=== PATIENT | female | born 1965 | race Caucasian/White ===

== ENCOUNTER 2016-10-21 20:03 | Emergency (ER) | payer OTHER ==
[2016-10-21 20:31] VITALS: BMI 34.9
[2016-10-21 20:35] VITALS: BP 129/87; PULSE 77; RESP 18; TEMP 98.2; O2SAT 98
[2016-10-21] MEDS ORDERED: Amoxicillin-Clav 875-125 mg Tab PO STA (20:57)
--- NOTE | 2016-10-21 21:01 | ED PDOC ---
Arrival/HPI - General Chief Complaint: ENT Problem Time Seen by Provider: 10/21/16 20:39 Historian: Patient - History of Present Illness Narrative History of Present Illness (Text): 10/21/16 20:58 51 y/o female, post menopausal, pmh including htn/hyperlipidemia, c/o lt. sided jaw swelling tonight sandwich dinner tonight. Pt. has no ear or throat pain, no dizziness, no headache, no night sweat, no dizziness, no difficulty swallowing, no other medical or psychological complaints. Past Medical History - Provider Review Nursing Documentation Reviewed: Yes - Infectious Disease Hx of Infectious Diseases: None - Tetanus Immunization Tetanus Immunization: >10 years Ago - Cardiac Hx Hypertension: Yes - Endocrine/Metabolic Hx Diabetes Mellitus Type 2: Yes - Musculoskeletal/Rheumatological Hx Falls: No Hx Osteoporosis: Yes - Psychiatric Hx Depression: No Hx Emotional Abuse: No Hx Physical Abuse: No Hx Substance Use: No - Surgical History Other/Comment: 4 surgeries on right ankle, first 2 surgeries done in [place], family stated "they thought she had cancer of the bone"the next 2 surgeries were to remove bone from right hip to put in right ankle with 2. screws and to repair veins in right foot, pt presently has cast with satnam wrap to right lower leg - Anesthesia Hx Anesthesia: Yes Hx Anesthesia Reactions: No Hx Malignant Hyperthermia: No - Suicidal Assessment Feels Threatened In Home Enviroment: No Family/Social History - Physician Review Nursing Documentation Reviewed: Yes Family/Social History: Unknown Family HX Smoking Status: Never Smoked Hx Alcohol Use: No Hx Substance Use: No Hx Substance Use Treatment: No Allergies/Home Meds Allergies/Adverse Reactions: Allergies No Known Allergies Allergy (Verified 08/08/12 22:50) Home Medications: Home Meds Medication Instructions Recorded Confirmed Albiglutide [Tanzeum] 1 vial SQ Q7D 10/21/16 10/21/16 Ergocalciferol [Drisdol 50,000 1 cap PO Q7D 10/21/16 10/21/16 Intl Units Cap] Ibandronate [Boniva] 150 mg PO Q30D 10/21/16 10/21/16 Metoprolol Tartrate [Lopressor] 1 tab PO BID 10/21/16 10/21/16 Multivitamin [Honey Bears] 1 tab PO DAILY 10/21/16 10/21/16 Simvastatin [Simvastatin] 1 tab PO DAILY 10/21/16 10/21/16 Topiramate [Topamax] 1 tab PO BID 10/21/16 10/21/16 amLODIPine [Norvasc] 5 mg PO DAILY 10/21/16 10/21/16 Review of Systems - Review of Systems Constitutional: absent: Fatigue, Fevers Eyes: absent: Vision Changes ENT: Other (lt. side jaw pain). absent: Hearing Changes Respiratory: absent: SOB, Cough, Sputum Cardiovascular: absent: Chest Pain Gastrointestinal: absent: Abdominal Pain, Nausea, Vomiting Musculoskeletal: absent: Arthralgias, Back Pain, Neck Pain Psychiatric: absent: Anxiety, Depression, Suicidal Ideation Physical Exam Vital Signs Reviewed: Yes Vital Signs Temp Pulse Resp BP Pulse Ox 10/21/16 20:35 98.2 F 77 18 129/87 98 Temperature: Afebrile Blood Pressure: Normal Pulse: Regular Respiratory Rate: Normal Appearance: Positive for: Well-Appearing, Non-Toxic, Comfortable Pain Distress: Moderate Mental Status: Positive for: Alert and Oriented X 3 - Systems Exam Head: Present: Atraumatic, Normocephalic, Other (Facial: +ttp on the lt. parotid gland region with no regional lymphenapathy, no facial rash. ) Pupils: Present: PERRL Extroacular Muscles: Present: EOMI Conjunctiva: Present: Normal Ears: Present: NORMAL TM, Normal Canal. No: Erythema Mouth: Present: Moist Mucous Membranes Pharnyx: No: ERYTHEMA, EXUDATE, TONSILS ENLARGED, Uvular Deviation, Muffled/ Hoarse Voice, Soft Palate/Uvular Edema Nose (External): Present: Atraumatic. No: Abrasion, Contusion, Laceration, Lesions Nose (Internal): Present: Normal Inspection, No Active Bleeding. No: Rhinorrhea , Septal Hematoma, Epistaxis Neck: Present: Normal Range of Motion Respiratory/Chest: Present: Clear to Auscultation, Good Air Exchange. No: Respiratory Distress, Accessory Muscle Use Cardiovascular: Present: Regular Rate and Rhythm, Normal S1, S2. No: Murmurs Abdomen: Present: Normal Bowel Sounds. No: Tenderness, Distention, Peritoneal Signs Back: Present: Normal Inspection Upper Extremity: Present: Normal Inspection. No: Cyanosis, Edema Lower Extremity: Present: Normal Inspection. No: Edema Neurological: Present: GCS=15, Speech Normal, Motor Func Grossly Intact, Gait Normal, Memory Normal Skin: Present: Warm, Dry, Normal Color. No: Rashes Lymphatic: No: Cervical Adenopathy Psychiatric: Present: Alert, Oriented x 3, Normal Insight, Normal Concentration Medical Decision Making ED Course and Treatment: 10/21/16 21:01 -toradol IM and augmentin -Discharge home with augmentin, motrin, avoid sandwich/pasta food for 7 days, eat some sour candy, salt water gargling, follow up with your own pmd and ENT within 2 days, return to the ER for any new or worsening signs or symptoms. 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 Disposition/Present on Arrival - Present on Arrival Any Indicators Present on Arrival: No History of DVT/PE: No History of Uncontrolled Diabetes: No Urinary Catheter: No History of Decub. Ulcer: No History Surgical Site Infection Following: None - Disposition Have Diagnosis and Disposition been Completed?: Yes Diagnosis: Acute parotitis Disposition: HOME/ ROUTINE Disposition Time: 21:02 Patient Plan: Discharge Condition: GOOD Additional Instructions: Discharge home with augmentin, motrin, avoid sandwich/pasta food for 7 days, eat some sour candy, salt water gargling, follow up with your own pmd and ENT within 2 days, return to the ER for any new or worsening signs or symptoms. Prescriptions: Amoxicillin/Clavulanate [Augmentin 875 MG-125 MG] 1 tab PO BID #20 tab Ibuprofen [Motrin Tab] 600 mg PO QID PRN #24 tab PRN Reason: Other Referrals: Andreas Cordova DO [Staff Provider] - Follow up with primary [facility] [Non-Staff] - Follow up with primary [facility] [Outside] - Follow up with primary Forms: WORK NOTE
== END 2016-10-21 21:15 | disposition home or self-care (01) ==
LOC: ED 20:03
DX: K11.21 Acute sialoadenitis (principal)
CPT/HCPCS: 96372; 99282; J1885

== ENCOUNTER 2016-11-14 21:35 | Emergency (ER) | payer OTHER ==
[2016-11-14 21:36] VITALS: BMI 34.9
--- NOTE | 2016-11-14 23:00 | ED PDOC ---
Arrival/HPI <Erich Walker - Last Filed: 11/14/16 23:18> - General Historian: Patient, Other (daughter ) <Lor Chawla - Last Filed: 11/15/16 01:47> - General Chief Complaint: Medical Clearance Time Seen by Provider: 11/14/16 22:18 - History of Present Illness Narrative History of Present Illness (Text): 11/14/16 22:49 Patient is a 51 year old presenting with right sided neck pain for 2 days. Patient states she noticed yesterday morning the neck was swollen and painful. Patient admits to pain with opening her mouth, swallowing, and chewing. Patient denies neck spams, denies trauma. Denies fever, or chills, denies n/v/v, cp or sob. As per patient's daughter patient has been complaining of lower lateral tooth pain and is scheduled to see dentist next month. (Lor Chawla) Past Medical History - Provider Review Nursing Documentation Reviewed: Yes - Travel History Have you recently traveled outside [place] w/in the past 3 mons?: No - Infectious Disease Hx of Infectious Diseases: None - Tetanus Immunization Tetanus Immunization: >10 years Ago - Reproductive Menopause: Yes - Cardiac Hx Hypertension: Yes - Endocrine/Metabolic Hx Diabetes Mellitus Type 2: Yes - Musculoskeletal/Rheumatological Hx Falls: No Hx Osteoporosis: Yes - Psychiatric Hx Depression: No Hx Emotional Abuse: No Hx Physical Abuse: No Hx Substance Use: No - Surgical History Other/Comment: 4 surgeries on right ankle, first 2 surgeries done in [place], family stated "they thought she had cancer of the bone"the next 2 surgeries were to remove bone from right hip to put in right ankle with 2. screws and to repair veins in right foot, pt presently has cast with satnam wrap to right lower leg - Anesthesia Hx Anesthesia: Yes Hx Anesthesia Reactions: No Hx Malignant Hyperthermia: No - Suicidal Assessment Feels Threatened In Home Enviroment: No <Lor Chawla - Last Filed: 11/15/16 01:47> Family/Social History Family/Social History: No Known Family HX Smoking Status: Never Smoked Hx Alcohol Use: No Hx Substance Use: No Hx Substance Use Treatment: No <Lor Chawla - Last Filed: 11/15/16 01:47> Allergies/Home Meds <Erich Walker - Last Filed: 11/14/16 23:18> <Lor Chawla - Last Filed: 11/15/16 01:47> Allergies/Adverse Reactions: Allergies No Known Allergies Allergy (Verified 08/08/12 22:50) Home Medications: Home Meds Medication Instructions Recorded Confirmed Albiglutide [Tanzeum] 1 vial SQ Q7D 10/21/16 11/14/16 Ergocalciferol [Drisdol 50,000 1 cap PO Q7D 10/21/16 11/14/16 Intl Units Cap] Ibandronate [Boniva] 150 mg PO Q30D 10/21/16 11/14/16 Metoprolol Tartrate [Lopressor] 1 tab PO BID 10/21/16 11/14/16 Multivitamin [Honey Bears] 1 tab PO DAILY 10/21/16 11/14/16 Simvastatin [Simvastatin] 1 tab PO DAILY 10/21/16 11/14/16 Topiramate [Topamax] 1 tab PO BID 10/21/16 11/14/16 amLODIPine [Norvasc] 5 mg PO DAILY 10/21/16 11/14/16 Review of Systems - Review of Systems Constitutional: Normal Eyes: Normal ENT: TMJ Pain (right), Sore Throat. absent: Hearing Changes, Tinnitus, Voice Changes, Rhinorrhea, Epistaxis, Sinus Congestion Respiratory: Normal Cardiovascular: Normal Gastrointestinal: Normal Genitourinary Female: Normal Musculoskeletal: Normal Skin: Normal Neurological: Normal Endocrine: Normal Hemo/Lymphatic: Normal Psychiatric: Normal <NattysarahLor edwards - Last Filed: 11/15/16 01:47> Physical Exam Vital Signs Reviewed: Yes Temperature: Afebrile Blood Pressure: Normal Pulse: Regular Respiratory Rate: Normal Appearance: Positive for: Well-Appearing, Non-Toxic, Comfortable Pain Distress: Moderate Mental Status: Positive for: Alert and Oriented X 3 - Systems Exam Head: Present: Atraumatic, Normocephalic Pupils: Present: PERRL Extroacular Muscles: Present: EOMI Conjunctiva: Present: Normal Ears: Present: Normal, NORMAL TM Mouth: Present: Moist Mucous Membranes, Other (+ TMJ pain on the right. ). No: Drooling, Normal Teeth (frontal prosthetic teeths. back lower teeth with mild edema, + glandular edema. no exudates. ) Pharnyx: Present: Normal. No: ERYTHEMA, EXUDATE, Uvular Deviation, Muffled/ Hoarse Voice Nose (External): Present: Atraumatic Nose (Internal): Present: Normal Inspection Neck: Present: Lymphadenopathy (Right lateral cervical ), Trachea Midline, Other (Pain with ROM. ). No: Meningeal Signs, MIDLINE TENDERNESS, Paraspinal Tenderness Respiratory/Chest: Present: Clear to Auscultation, Good Air Exchange. No: Respiratory Distress, Accessory Muscle Use, Wheezes, Rales, Retracting, Rhonchi , Tachypneic Cardiovascular: Present: Regular Rate and Rhythm, Normal S1, S2. No: Murmurs Abdomen: Present: Normal Bowel Sounds. No: Tenderness, Distention Back: Present: Normal Inspection Upper Extremity: Present: Normal Inspection. No: Edema Lower Extremity: Present: Normal Inspection. No: Edema Neurological: Present: GCS=15 Skin: Present: Warm, Dry, Normal Color. No: Rashes Psychiatric: Present: Alert, Oriented x 3, Normal Insight, Normal Concentration <Lor Chawla - Last Filed: 11/15/16 01:47> Vital Signs Temp Pulse Resp BP Pulse Ox 11/14/16 22:05 98.7 F 68 16 106/72 98 Medical Decision Making - Lab Interpretations I have reviewed the lab results: Yes <Erich Walker - Last Filed: 11/14/16 23:18> Re-evaluation Time: 01:20 Reassessment Condition: Re-examined, Improving,but remains with symptoms - Lab Interpretations I have reviewed the lab results: Yes Interpretation: All labs normal <Lor Chalwa - Last Filed: 11/15/16 01:47> ED Course and Treatment: Impression: Pt seen and evaluated with medical instructor. Pt presented for right-sided neck pain for 2 days with pain when opening her mouth, swallowing, or chewing. Aware and agree with HPI, clinical findings, plan, and management. Plan: -- Labs -- IV fluids -- Naproxen -- Reassess and disposition (Erich Walker) 11/14/16 23:07 Patient is a 51 year old presenting with right sided neck pain for 2 days., with tmj pain and right lower molar pain. Differential diagnosis: Tooth pain and TMJ pain, likely tooth abscess. Plan: will obtain cbc, cmp, will give IVF bolus @ 1000 cc Naproxen for pain will give Clindamicin for possible abscess Reevaluate for pain and refer to dentist (Lor Chawla) - Lab Interpretations Lab Results: 11/14/16 23:40 11/14/16 23:40 Lab Results 11/14/16 23:40: Sodium 136, Potassium 4.3, Chloride 105, Carbon Dioxide 27, Anion Gap 8 L, BUN 18, Creatinine 0.8, Est GFR ( Amer) > 60, Est GFR (Non -Af Amer) > 60, Random Glucose 92, Calcium 9.3, Total Bilirubin 0.5, AST 21, ALT 29, Alkaline Phosphatase 52, Total Protein 7.1, Albumin 4.0, Globulin 3.1, Albumin/Globulin Ratio 1.3 11/14/16 23:40: WBC 7.2, RBC 3.82, Hgb 11.4 L, Hct 34.9 L, MCV 91.4, MCH 29.8, MCHC 32.7, RDW 14.3, Plt Count 236, MPV 9.4, Gran % 45.8 L, Lymph % (Auto) 43.7 H, Laurens % (Auto) 7.2 H, Eos % (Auto) 2.9, Baso % (Auto) 0.4, Gran # 3.29, Lymph # 3.1, Laurens # 0.5, Eos # 0.2, Baso # 0.03 - Medication Orders Current Medication Orders: Discontinued Medications Clindamycin HCl (Cleocin) 150 mg PO STAT STA PRN Reason: Protocol Stop: 11/14/16 23:25 Last Admin: 11/15/16 00:20 Dose: 150 mg Sodium Chloride (Sodium Chloride 0.9%) 1,000 mls @ 999 mls/hr IV .Q1H1M STA Stop: 11/15/16 00:02 Last Admin: 11/15/16 00:47 Dose: 999 mls/hr Naproxen (Anaprox Ds) 550 mg PO STAT STA Stop: 11/14/16 23:03 Last Admin: 11/14/16 23:39 Dose: 550 mg - PA / STITCH RUBBER / Resident Statement MAYUR has reviewed & agrees with the documentation as recorded. MAYUR has examined the patient and agrees with the treatment plan. <Erich Walker - Last Filed: 11/14/16 23:18> Disposition/Present on Arrival <AaronErich - Last Filed: 11/14/16 23:18> - Present on Arrival Any Indicators Present on Arrival: No History of DVT/PE: No History of Uncontrolled Diabetes: No Urinary Catheter: No History of Decub. Ulcer: No History Surgical Site Infection Following: None - Disposition Have Diagnosis and Disposition been Completed?: Yes Disposition Time: 01:40 Patient Plan: Discharge <NattysarahLor edawrds - Last Filed: 11/15/16 01:47> - Disposition Diagnosis: Tooth ache, Dental abscess Disposition: HOME/ ROUTINE Patient Problems: Current Active Problems Problem Status Onset Dental abscess Acute Tooth ache Acute Condition: STABLE Discharge Instructions (ExitCare): Dental Abscess (ED) Additional Instructions: Take the antibiotic as prescribed Can take naproxen as need for pain, every 12 hrs. Follow up with dentist. Go to the nearest emergency room if you experience chest pain, fever or sob. Prescriptions: Clindamycin [Cleocin] 150 mg PO Q6H #21 cap Naproxen 500 mg PO Q12H PRN #20 ect PRN Reason: Pain, Moderate (4-7) Referrals: Justo Go MD [Primary Care Provider] - Follow up with primary
[2016-11-14] MEDS ORDERED: Naproxen 550 mg Tab PO STA (23:02)
[2016-11-14] MEDS: Sodium Chloride 0.9% 1,000 ML IV STA (23:39)
[2016-11-14 23:49] LABS: ADD MANUAL DIFF? NO
[2016-11-14 23:51] LABS: BASO # 0.03 K/mm3 (0.0-2.0); BASO % 0.4 % (0.0-3.0); EOS # 0.2 (0.0-0.7); EOS % 2.9 % (1.5-5.0); GRAN # 3.29 (1.4-6.5); GRAN % 45.8 % (50.0-68.0); HEMATOCRIT 34.9 % (36.0-48.0); LYMPH # 3.1 (1.2-3.4); LYMPH % 43.7 % (22.0-35.0); MEAN CELL VOLUME 91.4 fL (80.0-105.0); MEAN CORPUSCULAR HEMOGLOBIN 29.8 pg (25.0-35.0); MEAN CORPUSCULAR HGB CONC 32.7 g/dl (31.0-37.0); MEAN PLATELET VOLUME 9.4 fl (7.0-11.0); MONO # 0.5 (0.1-0.6); MONO % 7.2 % (1.0-6.0); PLATELET COUNT 236 10^3/uL (120.0-450.0); RED CELL DISTRIBUTION WIDTH 14.3 % (11.5-14.5); WHITE BLOOD COUNT 7.2 10^3/ul (4.5-11.0)
[2016-11-15 00:35] LABS: ALB/GLOB RATIO 1.3 (1.1-1.8); ALKALINE PHOSPHATASE 52 U/L (38-133); AST/SGOT 21 U/L (15-39); BILIRUBIN,TOTAL 0.5 mg/dL (0.2-1.3); BLOOD UREA NITROGEN 18 mg/dL (7-21); CARBON DIOXIDE 27 mmol/L (21-33); GFR AFRICAN-AMERICAN > 60; GLUCOSE,RANDOM 92 mg/dL (70-110); TOTAL PROTEIN 7.1 g/dL (5.8-8.3)
[2016-11-15] MEDS: Sodium Chloride 0.9% 1,000 ML IV STA (00:47)
[2016-11-15 01:27] LABS: ALT/SGPT 29 U/L (7-56); CALCIUM 9.3 mg/dL (8.4-10.5); CHLORIDE 105 mmol/L (98-107); POTASSIUM 4.3 mmol/L (3.6-5.0); SODIUM 136 mmol/L (132-148)
[2016-11-15 02:07] VITALS: BP 110/68; PULSE 70; RESP 18; TEMP 98; O2SAT 100
== END 2016-11-15 02:07 | disposition home or self-care (01) ==
LOC: ED 21:35
DX: K04.7 Periapical abscess without sinus (principal); K08.89 Other specified disorders of teeth and supporting structures; I10 Essential (primary) hypertension; E11.9 Type 2 diabetes mellitus without complications
CPT/HCPCS: 80053; 85025; 96360; 99283; J7040

== ENCOUNTER 2017-11-18 19:18 | Emergency (ER) | payer MEDICAID, OTHER ==
[2017-11-18 19:19] VITALS: BMI 34.9
[2017-11-18 20:07] LABS: HEMOGLOBIN 11.8 g/dL (12.0-16.0); MEAN CELL VOLUME 85.3 fl (80.0-105.0); MEAN CORPUSCULAR HEMOGLOBIN 27.6 pg (25.0-35.0); MEAN CORPUSCULAR HGB CONC 32.3 g/dl (31.0-37.0); RBC 4.28 10^6/uL (3.5-6.1); RED CELL DISTRIBUTION WIDTH 15.3 % (11.5-14.5); WHITE BLOOD COUNT 5.9 10^3/ul (4.5-11.0)
[2017-11-18 20:17] LABS: INR 0.9 (0.93-1.08); PARTIAL THROMBOPLASTIN TIME 27.8 Seconds (25.1-36.5); PROTHROMBIN TIME 10.2 SECONDS (9.4-12.5)
--- NOTE | 2017-11-18 20:19 | ED PDOC ---
Arrival/HPI - General Chief Complaint: Lower Extremity Problem/Injury Time Seen by Provider: 11/18/17 19:31 Historian: Patient - History of Present Illness Narrative History of Present Illness (Text): 11/18/17 20:10 52 year old female, whose PMH includes hypertension and diabetes, who presents to the emergency department complaining of swelling on the lower extremities that has become worse.Patient denies chest pain,sob,fever, chills, cough, trauma , or other complaints. Time/Duration: < week Symptom Onset: Gradual Symptom Course: Worsening Context: Exertion, Home Past Medical History - Provider Review Nursing Documentation Reviewed: Yes - Infectious Disease Hx of Infectious Diseases: None - Tetanus Immunization Tetanus Immunization: >10 years Ago - Reproductive Menopause: Yes - Cardiac Hx Hypertension: Yes - Endocrine/Metabolic Hx Diabetes Mellitus Type 2: Yes - Musculoskeletal/Rheumatological Hx Falls: No Hx Osteoporosis: Yes - Psychiatric Hx Depression: No Hx Emotional Abuse: No Hx Physical Abuse: No Hx Substance Use: No - Surgical History Other/Comment: 4 surgeries on right ankle, first 2 surgeries done in [place], family stated "they thought she had cancer of the bone"the next 2 surgeries were to remove bone from right hip to put in right ankle with 2. screws and to repair veins in right foot, pt presently has cast with satnam wrap to right lower leg - Anesthesia Hx Anesthesia: Yes Hx Anesthesia Reactions: No Hx Malignant Hyperthermia: No - Suicidal Assessment Feels Threatened In Home Enviroment: No Family/Social History - Physician Review Nursing Documentation Reviewed: Yes Family/Social History: Unknown Family HX Smoking Status: Never Smoked Hx Alcohol Use: No Hx Substance Use: No Hx Substance Use Treatment: No Allergies/Home Meds Allergies/Adverse Reactions: Allergies No Known Allergies Allergy (Verified 11/18/17 19:45) Home Medications: Home Meds Medication Instructions Recorded Confirmed Ergocalciferol [Drisdol 50,000 1 cap PO Q7D 10/21/16 11/18/17 Intl Units Cap] Metoprolol Tartrate [Lopressor] 1 tab PO BID 10/21/16 11/18/17 Multivitamin [Honey Bears] 1 tab PO DAILY 10/21/16 11/18/17 Simvastatin [Simvastatin] 80 mg PO HS 10/21/16 11/18/17 amLODIPine [Norvasc] 10 mg PO HS 10/21/16 11/18/17 Empagliflozin [Jardiance] 25 mg PO DAILY 11/18/17 11/18/17 Famotidine [Pepcid] 40 mg PO DAILY 11/18/17 11/18/17 Hydrochlorothiazide [Microzide] 12.5 mg PO DAILY 11/18/17 11/18/17 Ibandronate Sodium [Boniva] 150 mg PO WM 11/18/17 11/18/17 Liraglutide [Victoza] 1.8 mg SC DAILY 11/18/17 11/18/17 MetFORMIN ER [Glucophage XR] 500 mg PO BID 11/18/17 11/18/17 Sucralfate [Carafate] 1 gm PO QID 11/18/17 11/18/17 Review of Systems - Review of Systems Constitutional: absent: Fevers ENT: absent: Sore Throat Respiratory: absent: SOB, Cough Cardiovascular: absent: Chest Pain Gastrointestinal: absent: Abdominal Pain, Vomiting Genitourinary Female: absent: Dysuria Musculoskeletal: Other (swelling on lower extremities ). absent: Back Pain Skin: absent: Rash Neurological: absent: Headache, Dizziness Endocrine: absent: Diaphoresis Physical Exam Vital Signs Reviewed: Yes Vital Signs Temp Pulse Resp BP Pulse Ox 11/18/17 20:59 98 F 69 18 135/75 98 11/18/17 19:21 98.6 F 77 19 114/81 97 Temperature: Afebrile Blood Pressure: Normal Pulse: Regular Respiratory Rate: Normal Appearance: Positive for: Well-Appearing, Non-Toxic, Comfortable, Other (obese) Pain Distress: None Mental Status: Positive for: Alert and Oriented X 3 - Systems Exam Head: Present: Atraumatic, Normocephalic Pupils: Present: PERRL Extroacular Muscles: Present: EOMI Conjunctiva: Present: Normal Ears: Present: Normal, NORMAL TM, Normal Canal. No: Erythema, TM Bulging Mouth: Present: Moist Mucous Membranes Pharnyx: Present: Normal. No: ERYTHEMA, EXUDATE Respiratory/Chest: Present: Clear to Auscultation, Good Air Exchange. No: Respiratory Distress, Accessory Muscle Use, Wheezes, Decreased Breath Sounds, Rales, Retracting, Rhonchi Cardiovascular: Present: Regular Rate and Rhythm, Normal S1, S2. No: Murmurs Abdomen: Present: Normal Bowel Sounds. No: Tenderness, Distention, Peritoneal Signs, Rebound, Guarding Lower Extremity: Present: Edema (1+ pedal edema), Normal ROM, Neurovascularly Intact. No: Normal Inspection, Evelyn's Sign, Tenderness, Deformity Neurological: Present: GCS=15, CN II-XII Intact, Speech Normal Skin: Present: Warm, Dry, Normal Color. No: Rashes Psychiatric: Present: Alert, Oriented x 3, Normal Insight, Normal Concentration Medical Decision Making ED Course and Treatment: 11/18/17 Impression: 52 year old female with +1 pedal edema complaining of lower extremity swelling. Plan: -- EKG -- Labs -- Chest X-ray -- Ultrasound Duplex Lower Extremities -- Reassess and disposition Progress Notes: 11/18/17 21:05 US Duplex Lower Extremities negative for DVT. 11/18/17 21:55 Reviewed EKG, NSR at 82 bpm. Inferior infarct. Non-specific ST/T wave changes. Unchanged from previous EKG on 02/2014. 11/18/17 23:35 Chest X-ray reviewed, shows cardiomegaly. 11/19/17 00:[address] Go, pt's PMD, who is aware and agrees with plan. States pt is stable for d/c home with outpt f/u in his office. - Lab Interpretations Lab Results: 11/18/17 20:00 11/18/17 20:00 Lab Results 11/18/17 20:00: WBC 5.9, RBC 4.28, Hgb 11.8 L, Hct 36.5, MCV 85.3, MCH 27.6, MCHC 32.3, RDW 15.3 H, Plt Count 261, MPV 10.0 11/18/17 20:00: Sodium 142, Potassium 4.0, Chloride 103, Carbon Dioxide 27, Anion Gap 16, BUN 16, Creatinine 0.7, Est GFR ( Amer) > 60, Est GFR (Non- Af Amer) > 60, Random Glucose 104, Calcium 9.1, Total Bilirubin 0.5, AST 26, ALT 31, Alkaline Phosphatase 60, Lactate Dehydrogenase 467, Total Creatine Kinase 109, Troponin I < 0.01, NT-Pro-B Natriuret Pep 92.6, Total Protein 7.0, Albumin 4.0, Globulin 3.0, Albumin/Globulin Ratio 1.3 11/18/17 20:00: PT 10.2, INR 0.90 L, APTT 27.8 I have reviewed the lab results: Yes - RAD Interpretation Radiology Orders: 11/18/17 19:49 CHEST PORTABLE [RAD] Stat 11/18/17 19:50 DUPLEX LOWER EXTRM VEIN BILAT [US] Stat Medical Administrative Technician: ED Physician - EKG Interpretation Interpreted by ED Physician: Yes Type: 12 lead EKG - Medication Orders Current Medication Orders: Discontinued Medications Furosemide (Lasix) 40 mg IVP ONCE ONE Stop: 11/18/17 23:30 - Scribe Statement The provider has reviewed the documentation as recorded by the Oniibe Jen Sanchez Provider Scribe Attestation: All medical record entries made by the Scribe were at my direction and personally dictated by me. I have reviewed the chart and agree that the record accurately reflects my personal performance of the history, physical exam, medical decision making, and the department course for this patient. I have also personally directed, reviewed, and agree with the discharge instructions and disposition. Disposition/Present on Arrival - Present on Arrival Any Indicators Present on Arrival: No History of DVT/PE: No History of Uncontrolled Diabetes: No Urinary Catheter: No History of Decub. Ulcer: No History Surgical Site Infection Following: None - Disposition Have Diagnosis and Disposition been Completed?: Yes Diagnosis: Leg edema Disposition: HOME/ ROUTINE Disposition Time: 00:10 Patient Plan: Discharge Patient Problems: Current Active Problems Problem Status Onset Leg edema Acute Condition: GOOD Discharge Instructions (ExitCare): Dependent Edema (DC) Additional Instructions: Continue your current medication/follow up with your doctor this week Referrals: Justo Go MD [Primary Care Provider] - Follow up with primary Forms: Vibby (Faroese)
[2017-11-18 20:20] LABS: ALB/GLOB RATIO 1.3 (1.1-1.8); ALT/SGPT 31 U/L (7-56); AST/SGOT 26 U/L (14-36); BLOOD UREA NITROGEN 16 mg/dL (7-21); CALCIUM 9.1 mg/dL (8.4-10.5); GFR AFRICAN-AMERICAN > 60; GFR NON-AFRICAN AMERICAN > 60
[2017-11-18 20:32] LABS: B-TYPE NATRIURETIC PEPTIDE 92.6 pg/mL (0-450); TROPONIN I < 0.01 ng/mL
[2017-11-18 21:00] VITALS: RESP 18; TEMP 98
[2017-11-19 00:22] VITALS: BP 127/80
[2017-11-19 00:50] VITALS: PULSE 78; O2SAT 97
--- NOTE | 2017-11-19 08:56 | RAD ---
HISTORY: sob COMPARISON: 02/28/2014 FINDINGS: LUNGS: No active pulmonary disease. PLEURA: No significant pleural effusion identified, no pneumothorax apparent. CARDIOVASCULAR: Normal. OSSEOUS STRUCTURES: No significant abnormalities. VISUALIZED UPPER ABDOMEN: Normal. OTHER FINDINGS: None. IMPRESSION: No active disease.
--- NOTE | 2017-11-19 09:59 | CARD ---
APPROVED REPORT EKG Measurement Heart [id number] OK [id number] <Conclusion> Normal sinus rhythm
--- NOTE | 2017-11-19 12:12 | US ---
HISTORY: Leg pain and swelling. Evaluate for DVT PHYSICIAN(S): David Tanner MD. TECHNIQUE: Duplex sonography and color-flow Doppler with graded compression were used to evaluate the deep venous systems of both lower extremities. The exam is limited by body habitus and edema. The tibial veins are not well seen FINDINGS: The visualized deep venous systems of both lower extremities are sonographically normal and compressible. Normal wave forms and augmentation are seen. There is no sonographic evidence for deep venous thrombosis in the visualized segments of both lower extremities. IMPRESSION: No sonographic evidence for deep venous thrombosis in the visualized segments of both lower extremities.
== END 2017-11-19 00:25 | disposition home or self-care (01) ==
LOC: ED 19:18
DX: R60.0 Localized edema (principal)
CPT/HCPCS: 71045; 80053; 82550; 83615; 83880; 84484; 85027; 85610; 85730; 93005; 93970; 96374; 99284; J1940

== ENCOUNTER 2017-12-10 21:07 | Emergency (ER) | payer MEDICAID ==
[2017-12-10 21:09] VITALS: BMI 34.9
[2017-12-10 21:31] VITALS: TEMP 97.8; O2SAT 98
--- NOTE | 2017-12-10 22:54 | ED PDOC ---
Arrival/HPI - General Chief Complaint: Lower Extremity Problem/Injury Time Seen by Provider: 12/10/17 21:51 Historian: Patient - History of Present Illness Narrative History of Present Illness (Text): 12/10/17 22:42 52yo female with pmhx of hypertension, Diabetes and hyperlipdemia who present with complaint of posterior left knee pain. 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 She describes pain as burning. Did not take any medication. States pain radiates to her posterior thigh. Denies chest pain, SOB , diaphoresis, nausea, vomiting, focal weakness, recent travel/surgery, trauma, any other complaint. Past Medical History - Provider Review Nursing Documentation Reviewed: Yes - Infectious Disease Hx of Infectious Diseases: None - Tetanus Immunization Tetanus Immunization: >10 years Ago - Reproductive Menopause: Yes - Cardiac Hx Cardiac Disorders: Yes Hx Hypertension: Yes - Endocrine/Metabolic Hx Endocrine Disorders: Yes Hx Diabetes Mellitus Type 2: Yes - Musculoskeletal/Rheumatological Hx Falls: No Hx Osteoporosis: Yes - Psychiatric Hx Depression: No Hx Emotional Abuse: No Hx Physical Abuse: No Hx Substance Use: No - Surgical History Other/Comment: 4 surgeries on right ankle, first 2 surgeries done in [place], family stated "they thought she had cancer of the bone"the next 2 surgeries were to remove bone from right hip to put in right ankle with 2. screws and to repair veins in right foot, pt presently has cast with satnam wrap to right lower leg - Anesthesia Hx Anesthesia: Yes Hx Anesthesia Reactions: No Hx Malignant Hyperthermia: No - Suicidal Assessment Feels Threatened In Home Enviroment: No Family/Social History - Physician Review Nursing Documentation Reviewed: Yes Family/Social History: Unknown Family HX Smoking Status: Never Smoked Hx Alcohol Use: No Hx Substance Use: No Hx Substance Use Treatment: No Allergies/Home Meds Allergies/Adverse Reactions: Allergies No Known Allergies Allergy (Verified 11/18/17 19:45) Home Medications: Home Meds Medication Instructions Recorded Confirmed Ergocalciferol [Drisdol 50,000 1 cap PO Q7D 10/21/16 12/10/17 Intl Units Cap] Metoprolol Tartrate [Lopressor] 1 tab PO BID 10/21/16 12/10/17 Multivitamin [Honey Bears] 1 tab PO DAILY 10/21/16 12/10/17 Simvastatin [Simvastatin] 80 mg PO HS 10/21/16 12/10/17 amLODIPine [Norvasc] 10 mg PO HS 10/21/16 12/10/17 Empagliflozin [Jardiance] 25 mg PO DAILY 11/18/17 12/10/17 Famotidine [Pepcid] 40 mg PO DAILY 11/18/17 12/10/17 Hydrochlorothiazide [Microzide] 12.5 mg PO DAILY 11/18/17 12/10/17 Ibandronate Sodium [Boniva] 150 mg PO WM 11/18/17 12/10/17 Liraglutide [Victoza] 1.8 mg SC DAILY 11/18/17 12/10/17 MetFORMIN ER [Glucophage XR] 500 mg PO BID 11/18/17 12/10/17 Sucralfate [Carafate] 1 gm PO QID 11/18/17 12/10/17 Review of Systems - Physician Review All systems were reviewed & negative as marked: Yes - Review of Systems Constitutional: Normal Eyes: Normal ENT: Normal Respiratory: Normal Cardiovascular: Normal Gastrointestinal: Normal Genitourinary Female: Normal Musculoskeletal: Arthralgias (Left knee pain) Skin: Normal Neurological: Normal Endocrine: Normal Hemo/Lymphatic: Normal Psychiatric: Normal Physical Exam Vital Signs Reviewed: Yes Vital Signs Temp Pulse Resp BP Pulse Ox 12/10/17 21:29 97.8 F 74 18 126/80 98 Temperature: Afebrile Blood Pressure: Normal Pulse: Regular Respiratory Rate: Normal Appearance: Positive for: Well-Appearing, Non-Toxic, Comfortable Pain Distress: None Mental Status: Positive for: Alert and Oriented X 3 - Systems Exam Head: Present: Atraumatic, Normocephalic Pupils: Present: PERRL Extroacular Muscles: Present: EOMI Conjunctiva: Present: Normal Mouth: Present: Moist Mucous Membranes Neck: Present: Normal Range of Motion Respiratory/Chest: Present: Clear to Auscultation, Good Air Exchange. No: Respiratory Distress, Accessory Muscle Use Cardiovascular: Present: Regular Rate and Rhythm, Normal S1, S2. No: Murmurs Abdomen: No: Tenderness, Distention, Peritoneal Signs Back: Present: Normal Inspection Upper Extremity: Present: Normal Inspection. No: Cyanosis, Edema Lower Extremity: Present: NORMAL PULSES, Tenderness (Posterior left knee), Neurovascularly Intact. No: Edema, CALF TENDERNESS, Normal ROM (Limited on flexion secondary to pain), Evelyn's Sign, Swelling, Erythema, Temperature Abnormalties Neurological: Present: GCS=15, CN II-XII Intact, Speech Normal Skin: Present: Warm, Dry, Normal Color. No: Rashes Psychiatric: Present: Alert, Oriented x 3, Normal Insight, Normal Concentration Medical Decision Making ED Course and Treatment: 12/10/17 23:18 Pt in Ed for stated history. Her pain was controlled in ED. She was ambulatory in ED. She described burning pain in ED, this is more of a neuropathy. Preliminary US was negative for DVT. She had not anterior knee pain, no indication for bone pain. Result was DW the pt and she was referred to otho. Lyrica rx given. - RAD Interpretation Radiology Orders: 12/10/17 21:51 DUPLEX LOWER EXTRM VEIN LEFT [US] Stat - Medication Orders Current Medication Orders: Discontinued Medications Tramadol HCl (Ultram) 50 mg PO STAT STA Stop: 12/10/17 21:52 Last Admin: 12/10/17 22:14 Dose: 50 mg MAR Pain Assessment Document 12/10/17 22:14 CNR (Rec: 12/10/17 22:15 CNR [id number]) Pain Reassessment Is this a pain reassessment? No Disposition/Present on Arrival - Present on Arrival Any Indicators Present on Arrival: No History of DVT/PE: No History of Uncontrolled Diabetes: No Urinary Catheter: No History of Decub. Ulcer: No History Surgical Site Infection Following: None - Disposition Have Diagnosis and Disposition been Completed?: Yes Diagnosis: Leg pain Disposition: HOME/ ROUTINE Disposition Time: 23:20 Patient Plan: Discharge Condition: STABLE Discharge Instructions (ExitCare): Knee Pain Additional Instructions: Follow up with your doctor/Orthopedist Return to ED for any new or worsening symptoms Prescriptions: Pregabalin [Lyrica] 75 mg PO BID #10 cap Referrals: Joseph Pompa III, MD [Medical Doctor] - Follow up with primary Forms: Cuciniale (Frisian)
[2017-12-10 23:35] VITALS: BP 124/77; PULSE 78; RESP 16
--- NOTE | 2017-12-12 16:16 | US ---
PROCEDURE: Left lower extremity venous US HISTORY: Leg pain and swelling. Evaluate for DVT. PHYSICIAN(S): David Tanner MD. TECHNIQUE: Duplex sonography and color-flow Doppler with graded compression were used to evaluate the deep venous system of the left lower extremity. FINDINGS: The visualized deep venous system of the left lower extremity is sonographically normal and compressible. Normal wave forms and augmentation are seen. There is no sonographic evidence for deep venous thrombosis in the visualized segments of the left lower extremity. IMPRESSION: 1. No sonographic evidence for deep venous thrombosis in the visualized segments of the left lower extremity.
== END 2017-12-10 23:34 | disposition home or self-care (01) ==
LOC: ED 21:07
DX: M79.605 Pain in left leg (principal); E11.9 Type 2 diabetes mellitus without complications; I10 Essential (primary) hypertension; E78.5 Hyperlipidemia, unspecified